=== PATIENT | female | born 1945 | race Caucasian/White ===

== ENCOUNTER 2016-11-22 19:02 | Emergency (ER) | payer BC ==
[2016-11-22 19:33] VITALS: BP 140/57
--- NOTE | 2016-11-22 19:44 | UC ---
HPI Febrile Illness - HPI Summary HPI Summary: fever chills and cough began this morning has been exposed to Influenza B - History of Current Complaint Chief Complaint: UCGeneralIllness Time Seen by Provider: 11/22/16 19:42 Hx Obtained From: Patient Onset/Duration: Started Hours Ago Timing: Constant Temperature: 101.2 F Initial Severity: Moderate Current Severity: Moderate Pain Intensity: 8 Pain Scale Used: 0-10 Numeric Aggravating Factors: Nothing Alleviating Factors: Nothing Associated Signs and Symptoms: Arthralgia, Chills, Cough, Myalgia - Allergy/Home Medications Allergies/Adverse Reactions: Allergies Allergy/AdvReac Type Severity Reaction Status Date / Time Morphine and Related Allergy Intermediate Anxiety Verified 11/22/16 19:34 Home Medications: Home Medications Apixaban* [Eliquis*] 5 mg PO BID 11/22/16 [History Confirmed 11/22/16] PMH/Surg Hx/FS Hx/Imm Hx Previously Healthy: Yes Endocrine/Hematology History: Reports: Hx Anticoagulant Therapy Cardiovascular History: Denies: Hx Aneurysm, Hx Angina, Hx Angioplasty, Hx Atrial Fibrillation, Hx Auto Implanted Cardiovert Defib, Hx Cardiac Arrest, Hx Cardiomegaly, Hx Congenital Heart Disease, Hx Congestive Heart Failure, Hx Coronary Artery Disease, Hx Deep Vein Thrombosis, Hx Embolism, Hx Hypercholesterolemia, Hx Hypotension, Hx Hypertension, Hx Myocardial Infarction, Hx Pacemaker/ICD, Hx Peripheral Vascular Disease, Hx Rheumatic Fever, Hx Syncope, Hx Valvular Heart Disease, Hx Supraventricular Ventricular Tachycardia, Other Cardiovascular Problems/Disorders Respiratory History: Denies: Hx Asthma, Hx Bronchopulmonary Dysplasia, Hx Chronic Bronchitis, Hx Chronic Obstructive Pulmonary Disease (COPD), Hx Cystic Fibrosis, Hx Lung Cancer , Hx Pleural Effusion, Hx Pneumonia, Hx Pulmonary Edema, Hx Pulmonary Embolism, Hx Seasonal Allergies, Hx Sleep Apnea, Other Respiratory Problems/Disorders GI History: Reports: Other GI Disorders - gastric [id number] IV History: Reports: Hx Kidney Stones - ONE YEAR AGO Sensory History: Denies: Hx Contacts or Glasses - WEARS CONTACTS Opthamlomology History: Denies: Hx Contacts or Glasses - WEARS CONTACTS - Cancer History Cancer Type, Location and Year: Gastric Cancer with mets Hx Hematologic Symptoms: No Hx Chemotherapy: Yes Hx Radiation Therapy: No Hx Palliative Cancer Treatment: Yes - Surgical History Surgery Procedure, Year, and Place: L5-6 FUSION 35 YEARS AGO [place]. APPENDECTOMY 1982 [place]. TONSILLECTOMY 50 YEARS AGO [place] Hx Anesthesia Reactions: No - Immunization History Hx Pertussis Vaccination: No Immunizations Up to Date: Yes - does not think she had flu 9521-2685 season Infectious Disease History: No Infectious Disease History: Denies: Hx Clostridium Difficile, Hx Hepatitis, Hx Human Immunodeficiency Virus (HIV), Hx of Known/Suspected MRSA, Hx Shingles, Hx Tuberculosis, Hx Known/ Suspected VRE, Hx Known/Suspected VRSA, History Other Infectious Disease, Traveled Outside the in Last 30 Days - Family History Known Family History: Positive: None - Social History Occupation: Employed Part-time Lives: With Family Alcohol Use: None Substance Use Type: Reports: None Smoking Status (MU): Former Smoker Amount Used/How Often: 1/2 ppd Length of Time of Smoking/Using Tobacco: 3 years Have You Smoked in the Last Year: No Review of Systems Constitutional: Fever Skin: Negative Eyes: Negative ENT: Negative Respiratory: Cough Cardiovascular: Negative Gastrointestinal: Negative Genitourinary: Negative Motor: Negative Neurovascular: Negative Musculoskeletal: Arthralgia, Myalgia Neurological: Headache Psychological: Negative All Other Systems Reviewed And Are Negative: Yes Physical Exam Triage Information Reviewed: Yes Appearance: Ill-Appearing, Pain Distress, Thin Vital Signs: Initial Vital Signs Temp 101.2 F 11/22/16 19:21 Pulse 100 11/22/16 19:21 Resp 28 11/22/16 19:21 BP 140/57 11/22/16 19:21 Pulse Ox 94 11/22/16 19:21 Vital Signs Reviewed: Yes Eye Exam: Normal Eyes: Positive: Conjunctiva Clear ENT Exam: Normal ENT: Positive: Normal ENT inspection, Hearing grossly normal. Negative: Nasal congestion, Nasal drainage, Trismus, Muffled/hoarse voice Dental Exam: Normal Neck exam: Normal Neck: Positive: Supple, Nontender Respiratory Exam: Normal Respiratory: Positive: Chest non-tender, No respiratory distress, No accessory muscle use Cardiovascular Exam: Normal Cardiovascular: Positive: No Murmur, Pulses Normal, Brisk Capillary Refill, Tachycardia Abdominal Exam: Normal Musculoskeletal Exam: Normal Musculoskeletal: Positive: Strength Intact, ROM Intact, No Edema Neurological Exam: Normal Neurological: Positive: Alert, Muscle Tone Normal Psychological Exam: Normal Skin Exam: Normal Course/Dx - Course Assessment/Plan: transfer to [facility] for higher level of care - Febrile Illness Differential Diagnoses: Bacteremia, Fever of Unknown Origin, Pneumonia, Viremia - Diagnoses Clinic Provider Diagnoses: Fever on chemotherapy - Provider Notifications Discussed Patient Care With: Rod Jeter [employer] TECHNICIAN Time Discussed With Above Provider: 19:50 Instructed by Provider To: Transfer Discharge - Discharge Plan Condition: Guarded Disposition: AGAINST MEDICAL ADVICE
== END 2016-11-22 20:07 | disposition left against medical advice (07) ==
LOC: UCCORT 19:02
DX: R50.9 Fever, unspecified (principal); C16.9 Malignant neoplasm of stomach, unspecified; Z88.5 Allergy status to narcotic agent; Z79.01 Long term (current) use of anticoagulants; Z87.891 Personal history of nicotine dependence
CPT/HCPCS: 99212; G0463